=== PATIENT | female | born 1985 | race Caucasian/White ===

== ENCOUNTER 2022-12-04 13:24 | Emergency (ER) | payer OTHER ==
--- OUTSIDE RECORDS SUMMARY | 2022-12-04 13:27 | XMS REPORT | Continuity of Care Document ---
:1985 Author Organization [facility] t Address [address] [place] [address] Care Team Providers Name Role Phone PCP, PATIENT DOES NOT HAVE A Primary Care Physician Unavaila ble Elizabeth Mark Attending Clinician Unavailable BETSY FALCON Attending Clinician Unavailable Darryn GRISSOM, Clay Attending Clinician Unavailable Only, Pcp Test Attending Clinician Unavailable Sierra Cuevas MD Attending Clinician SIERRA CUEVAS Attending Clinician Unavailable Lab, Pcp Covid Attending Clinician Unavailable Marina Pisano RN Attending Clinician Unavailable RADIOLOGY Attending Clinician Unavailable Elizabeth Mark Admitting Clinician Unavailable TIAGO STEPHENS Admitting Clinician Unavailable Payers Payer Name Policy Type Policy Number Effective Date Expiration Date Radha SERRANO [facility] [id number] 2016 00:00:00 Problems Condition Condition Condition Status Onset Resolution Last Treating Co mments Source Name Details Category Date Date Treatment Clinician Date Personal Personal Disease Active Unive rs history of history of 05-30 it y of tobacco tobacco 00:00: [place] use, use, 00 Medical presenting presenting Br anch hazards to hazards to health health Breech Breech Disease Active 2006-10 Overview: Univer s presentati presentati 0-11 ICD10 it y of on on 00:00: Diagnosis [place] delivered delivered 00 Term 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 Second-deg Second-deg Disease Active Overview : Univers ree ree 5-11 ICD10 ity of perineal perineal 00:00: Diagnosis [place] as laceration laceration 00 Term Me dical during during 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 delivery delivery Utility Allergies, Adverse Reactions, Alerts Allergy Allergy Status Severity Reaction(s) Onset Inactive Treating Comm ents Source Name Type Date Date Clinician Sulfa DA Active [place] SWELLING 2021-10 [facility] (Sulfona 2-06 [place] mide 00:00: d Antibiot 00 Medical ics) Center Sulfa Propensi Active Swelling Facial Univer s (Sulfona ty to 5-11 swelling ity of mide adverse 00:00: [place] Antibiot reaction 00 Medica l ics) s Branch SULFA Drug Active Hives Univers (SULFONA Class 5-11 ity of MIDE 00:00: [place] ANTIBIOT 00 Medical ICS) Branch Social History Social Habit Start Date Stop Date Quantity Comments Source History of tobacco Cigarette Smoker [place] of use [facility] Sex Assigned At Universit y of [facility] Cigarettes smoked 2017-12-08 2017-12-08 Univers ity of current (pack per 00:00:00 00:00:00 ) - Reported Branch Cigarette 2017-12-08 2017-12-08 University of pack-years 00:00:00 00:00:00 [facility] Alcohol intake 2017-12-08 2017-12-08 University of 00:00:00 00:00:00 [facility] Smoking Status Start Date Stop Date Source Current every day smoker 2017-12-08 00:00:00 Uni versity of [facility] Medications Ordered Filled Start Stop Current Ordering Indication Dosage Frequency Signature Comments Components Source Medication Medication Date Date Medication? Clinician (SIG) Name Name TERBINAFINE Yes [id number] Take by Univers HCL 2-08 mouth. ity of (TERBINAFIN 18:03: [place] E ORAL) 40 Medical Branch amoxicillin Yes 500mg Take 500 U nivers 500 mg 2-08 mg by ity of capsule 18:03: mouth [address] [place] [id number] (three) Medical times Branch daily. TERBINAFINE Yes [id number] Take by Univers HCL 2-08 mouth. ity of (TERBINAFIN 18:03: [place] E ORAL) 40 Medical Branch amoxicillin Yes 500mg Take 500 U nivers 500 mg 2-08 mg by ity of capsule 18:03: mouth 3 [place] 40 (three) Medical times Branch daily. TERBINAFINE 2018-0 Yes [id number] Take by Univers HCL 2-08 mouth. ity of (TERBINAFIN 18:03: [place] E ORAL) 40 Medical Branch amoxicillin 2018-0 Yes 500mg Take 500 U nivers 500 mg 2-08 mg by ity of capsule 18:03: mouth 3 [place] 40 (three) Medical times Branch daily. TERBINAFINE 2018-0 Yes [id number] Take by Univers HCL 2-08 mouth. ity of (TERBINAFIN 18:03: [place] E ORAL) 40 Medical [place] amoxicillin 2018-0 Yes 500mg Take 500 U nivers 500 mg 2-08 mg by ity of capsule 18:03: mouth 3 [place] 40 (three) Medical times [place] daily. Immunizations Ordered Immunization Filled Immunization Date Status Commen ts Source Name Name Janak Briceno COVID-19 2020-11-30 Completed Vaccine Vaccine 00:00:00 Janak COVID-Yun Briceno COVID-19 2020-11-02 Completed Vaccine Vaccine 00:00:00 Procedures This patient has no known procedures. Encounters Start End Encounter Admission Attending Care Care Encounter Source Date/Time Date/Time Type Type Clinicians Facility Department ID 2022-10-06 2022-10-06 Outpatient ARIN Davidson RAGHAVENDRA [id number] [facility] 10:03:00 10:03:[address] 2022-10-06 2022-10-06 Outpatient ARIN Davidson RAGHAVENDRA [id number] [facility] 10:03:00 10:03:[address] 2020-11-30 2020-11-30 Outpatient Vilma FALCON [facility] [id number] Univers 13:20:00 13:20:[address] [facility] 2020-11-30 2020-11-30 Outpatient GCCOVIDV GCCOVIDV [id number] [facility] 00:00:00 00:00:00 V 2020-11-02 2020-11-02 Outpatient Vilma FALCON [facility] [id number] Univers 10:20:00 10:20:[address] [facility] 2020-11-02 2020-11-02 Outpatient Vilma FALCON [facility] [id number] [facility] 10:20:00 10:20:00 BETSY ity of [facility] 2020-11-02 2020-11-02 Outpatient GCCOVIDV GCCOVIDV [id number] [facility] 00:00:00 00:00:00 V 2020-04-22 2020-04-22 Telephone DarrynRODNEY [id number] 00:00:00 00:00:00 Clay WANGY [id number] [facility] 4.2.7.2.686 [id number] 2020-04-22 2020-04-22 Telephone CatesRODNEY 1.2.840.114 [id number] [facility] 00:00:00 00:00:00 Clay WANGY 350.1.13.10 it y [facility] 4.2.7.2.686 [place] as [phone] [address] 2020-04-21 2020-04-21 Laboratory Only, Pcp [facility] 1.2.840.114 [id number] 18:05:50 18:20:50 Only Test PRIMARY 350.1.13.10 CARE 4.2.7.2.686 PAVILLION [id number] [facility] 2020-04-21 2020-04-21 Laboratory Only, Pcp Test [facility] 1.2.840. 114 [id number] [facility] 18:05:50 18:20:50 Only Sierra Cuevas PRIMARY 350.1.13.10 ity of [facility] 4.2.7.2.686 [place] [id number] [address] 2020-04-21 2020-04-21 Outpatient Vilma CUEVAS [facility] [id number] Univers 18:15:00 18:15:00 SIERRA [place] of [facility] 2020-04-19 2020-04-19 Vice President Fixed Income Lab, Pcp [facility] 1.2.840.114 [id number] 16:09:36 16:19:36 Visit Covid PRIMARY 350.1.13.10 CARE 4.2.7.2.686 PAVILLION [id number] 2020-04-19 2020-04-19 Vice President Fixed Income Lab, Pcp Covid [facility] 1.2.840. 114 [id number] [facility] 16:09:36 16:19:36 Visit Sierra Cuevas [facility] 350.1.13.10 ity of [facility] 4.2.7.2.686 Osmani [facility] [phone] [address] 2020-04-19 2020-04-19 Outpatient R KILLIAN, [facility] [id number] [facility] 16:10:00 16:10:00 SIERRA [place] [facility] 2020-04-19 2020-04-19 Telephone Sabino STEVENS 1.2.840.114 [id number] 00:00:00 00:00:00 d, Marina NASCIMENTO [address].13.[address] [id number] [facility] 2020-04-19 2020-04-19 Telephone Sabino STEVENS 1.2.840.114 [id number] [facility] 00:00:00 00:00:00 d, Marina NASCIMENTO 350.1.13.10 ity [facility] 4.2.7.2.686 [place] zeynep [phone] [address] 2019-10-18 2019-10-18 Outpatient R RADIOLOGY [facility] [id number] [facility] 09:21:03 23:59:00 [facility] Results Test Description Test Time Test Comments Results Result Comments Source SURGICAL 2022-10-10 16:56:00 Test Item Value Reference Range Interpretation Comme tor SURGICAL RUN DATE: (test 10/10/22 SUSAN patiño - HORACE PAGE 1 RUN TIME: 3696 Specimen Inquiry RUN USER: INTERFACE code = PATIENT: BRITTANY SINGLETARY [id number] LOC: SAIMA U #: [id number] AGE/SX: 37/F ROOM: RE10/06/22[facility] DR: Elizabeth Mark MD : 83 BED: DIS: STATUS: [facility] TLOC: SPEC #: [id number]:PMC:[id number] RECD: 10/07/22608 STATUS: DARYL [facility] #: [id number] YARIEL: 10/06/221445 [facility] DR: Elizabeth Mark MD ENTERE SP TYPE: SURGICAL OTHR DR: ORDERED: [id number], ANATOMIC SPEC, SPECIMEN TRACK PROCEDURES: [id number] (10/10/22-1535) SPECIMEN TRACK (10/07/22) TISSUES: A. UTERUS - UTERUS, CERVIX, BILATERAL FA LLOPIAN TUBES FINAL DIAGNOSIS Uterus (139 g), fallopian tubes, hysterectomy and bilateral salpingectomie s: - Cervix, minimal chronic cervicitis with few Nabotian cyst- Endometrium, secretory pattern- Myometriu m, no morphological alteration- Serosa, no morphological alteration Fallopian tubes:- Wall, lume n and fimbriated end identified, bilaterally Comment: Negative for atypia/malignancy. Suggest c linical correlation. GROSS DESCRIPTION Uterus with bilateral fallopian tubes. Received is a uterus that weighs 139. It measurescornu to cornu 7.5 cm, posterior to anterior 5 cm, and fundus to cervix 10. 5 cm. Thecervix measures 4.2 x 3.5 cm with a cervical os transverse diameter of 1.5 cm. The uterusis biva lved revealing a pink smooth cervical canal of a 3.5 cm in length. The endometrialcavity is somewha t triangular in appearance measuring 3.5 x 2.5 cm. It is covered bythickened hemorrhagic endometrium of 0 .6 cm. The uterine wall has a maximum thickness of2.2 cm. Sectioning reveals no lesions. The serosal surf sina is smooth and glistening withadipose tissue along the anterior wall. There is attached right fall opian tube withfimbriated end measuring 4.5 cm in length with a diameter of 1 cm. The left fallopian tub ewith fimbriated end measures 6 cm in length and has a diameter of 1 cm. A1 posterior cervixA2 anterior cervixA3 posterior endomyometriumA4 additional sections of posterior endometriumA5 anterior endom yometrium A6 Additional sections of anterior endometriumA7 posterior reflectionA8 Right fallopian tube cut surface with entire bisected fimbriated end A9 Left fallopian tube cut surface with entire bisected fimbriated end CON TINUED ON NEXT PAGE RUN DATE: 10/10/22 [facility] - LAB PAGE 2 RUN TIME: 1656 Specimen Inquiry RUN USER: INTERFACE SPEC #: [id number]:[facility]:[id number] PATIENT: BRITTANY MARTIN #[id number] (Continued) GROSS DESCRIPTION (Continued ) Technical tissue processing and slide preparation performed at [employer],[id number], [place] [address] Unless gross only, the diagnosis is based upon microscopic examination.Immu nohistochemistry: This test was developed and its performance characteristicsdetermined by this laboratory. It has not been approved nor does it need approval by the USFDA. Appropriate positive and negative controls are reviewed and judged to be acceptable.This laboratory is certified unde r the Clinical Laboratory Improvement Amendments (CLIA-88)as qualified to perform high complexity clin [facility] laboratory testing. MICROSCOPIC DESCRIPTION Microscopic examination is performed on all specimens a nd the findings areincorporated into the final diagnosis. Please see diagnosis for findings. Signed SIGNATURE ON FILE Joseph Macias 10/10/22 1656 END OF REPORT BASIC METABOLIC [id number] 15:03:00 Test Item Value Reference Range Interpretation Comments SODIUM (test code 140 mmol/L 134-147 N = NA) POTASSIUM (test 3.9 mmol/L 3.4-5.0 N code = K) CHLORIDE (test 108 mmol/L 100-108 N code = CL) CARBON DIOXIDE 24 mmol/L 21-32 N (test code = CO2) ANION GAP (test 8.0 GAP calc 4.0-15.0 N code = GAP) GLUCOSE (test code 84 MG/DL 70-110 N = GLU) BLOOD UREA 6 MG/DL 7-18 L NITROGEN (test code = BUN) GLOMERULAR >=60 max >60 The Glomerular FILTRATION RATE estimate estGFR Filtratio n Rate is a (test code = GFR) calculated parameterbased on serum Creatinin e, patient age and sex. GFR valuesless than 60 mL/min/1.73 square meters are mya cative ofChronic Kidne y Disease. Values less than 15 mL/min/1.73squa re meters indicate Kidney failure. The calculation for GFR is based on the CK D-EPI (2020) calculat ion. This formulais race indifferent and is the recommended formula for GFR by the National Kidney Foundation for Adults.The GFR will not calculate i f the sex is unknown or if thepatient's ag e is <18 years. CREATININE (test 0.6 MG/DL 0.6-1.0 N code = CREAT) CALCIUM (test code 9.0 MG/DL 8.5-10.1 N = CA) COVID 19 INHOUSE [id number] 11:07:00 Test Item Value Reference Range Interpretation Comments COVID 19 INHOUSE AG NEGATIVE Negative Per gabriella facturer, (test code = negative result s should [id number]) be treated aspr esumptive and, if inconsi stent with clinical signs andsymptoms or necessary for patient man agement, should betested with an alternative mol ecular assay. Negative resultsdo not preclude SA RS-CoV-2 infection and s hould not be usedas the s ole basis for patient man agement decisions. Nega tive results should be considered in t he context of apatient's r ecent exposures, hist ory, presence of cli nicalsigns and symptoms co nsistent with COVID-19. PROTHROMBIN [id number] 11:07:00 Test Item Value Reference Range Interpretation Comments PT PATIENT (test 11.8 SECONDS 9.3-12.9 N code = PTP) INTERNATIONAL NORMAL 1.09 INR Unit 0.8-1.2 N TARGE T INR BY RATIO (test code = INDICATIO N Indication INR) INR1. Prophylax is of venous thrombos is 2.0 - 3.0 (orthoped ic surgery), Proph ylaxis of venous throm bosis (other than hig h-risk surgery), Treat ment of Deep Vein Thrombosis/Pulm onary Embolism, Preve ntion of systemic emb olism - Tissue heart va lves, Acute Myocardia l Infarction (to prevent systemic emboli sm), Valvular heart disease, Acute Myocardial Infa rction (to prevent sys temic embolism), Valv ular heart disease, Atrial Fibrillation, Bileaflet mecha nical valve in aortic position.2. Mec hanical prosthetic valv es (high risk), 2. 5 - 3.5 Presence of Lup us Anticoagulant o r Antiphospholipi d Antibodies, Pre vention of systemic emb olism - Acute Myocardia l Infarction (to prevent recurrent infar ct). THROMBOPLASTIN TIME [id number] 11:07:00 Test Item Value Reference Range Interpretation Comments THROMBOPLASTIN TIME PARTIAL 39.0 SECONDS 26-35 H (test code = PTT) CBC W/AUTO [id number] 11:04:00 Test Item Value Reference Range Interpretation Comments WHITE BLOOD CELL (test code = 8.0 K/mm3 3.5-11.0 N WBC) RED BLOOD CELL (test code = 4.35 M/mm3 4.70-6.10 L RBC) HEMOGLOBIN (test code = HGB) 12.7 G/DL 10.4-14.9 N HEMATOCRIT (test code = HCT) 37.9 % 31.5-44.1 N MEAN CELL VOLUME (test code = 87.1 Fl 84.5-98.6 N MCV) MEAN CELL HGB (test code = MCH) 29.2 pg 27.0-34.2 N MEAN CELL HGB CONCETRATION 33.5 G/DL 31.5-34.0 N (test code = MCHC) RED CELL DISTRIBUTION WIDTH 12.7 SD 11.5-14.5 N (test code = RDW) PLATELET COUNT (test code = 371 K/mm3 150-450 N PLT) MEAN PLATELET VOLUME (test code 9.20 fL 7.0-10.5 N = MPV) NEUTROPHIL % (test code = NT%) 57.0 % 40-76 N IMMATURE GRANULOCYTE % (test 0.4 % 0.0-5.0 N code = IG%) LYMPHOCYTE % (test code = LY%) 33.1 % 20.5-51.1 N MONOCYTE % (test code = MO%) 7.5 % 1.7-9.3 N EOSINOPHIL % (test code = EO%) 1.4 % 0.0-6.0 N BASOPHIL % (test code = BA%) 0.6 % 0.0-2.0 N NUCLEATED RBC % (test code = 0.0 /100WBC% 0.0-1.0 N NRBC%) NEUTROPHIL # (test code = NT#) 4.6 K/mm3 1.8-7.6 N IMMATURE GRANULOCYTE # (test 0.03 x10 3/uL 0.00-0.03 N code = IG#) LYMPHOCYTE # (test code = LY#) 2.7 K/mm3 0.6-3.2 N MONOCYTE # (test code = MO#) 0.6 K/mm3 0.3-1.1 N EOSINOPHIL # (test code = EO#) 0.1 K/mm3 0.0-0.4 N BASOPHIL # (test code = BA#) 0.1 K/mm3 0.0-0.1 N NUCLEATED RBC # (test code = 0.0 K/mm3 0.0-0.1 N NRBC#) MANUAL DIFF REQUIRED (test code NO DIFF/SCN CRITERIA = MDIFF) URINALYSIS [id number] 10:40:00 Test Item Value Reference Range Interpretation Comments UA GLUCOSE DIPSTICK (test NEGATIVE mg/dL NEG code = DGLUU) UA BILIRUBIN DIPSTICK (test NEGATIVE mg/dL NEG code = BILU) UA KETONE DIPSTICK (test NEGATIVE mg/dL NEG code = KETU) UA SPECIFIC GRAVITY (test <=1.005 SG 1.005-1.030 code = SGU) UA BLOOD DIPSTICK (test NEGATIVE mg/DL NEG code = LUIGI) UA PH DIPSTICK (test code = 7.0 pH UNITS 5.0-7.0 DAI) UA PROTEIN DIPSTICK (test NEGATIVE mg/dL NEG code = PROU) UA UROBILINIOGEN DIPSTICK 0.2 mg/dL <2.0 (test code = URO) UA NITRITE DIPSTICK (test NEGATIVE SCREEN NEG code = COY) UA LEUKOCYTE ESTERASE NEGATIVE Leuk/mcL NEGATIVE DIPSTICK (test code = LEUU) Urine Specimen Type: Clean CatchUR HCG [id number] 10:38:00 Test Item Value Reference Range Interpretation Comments UR HCG QUAL (test code = HCGQLU) NEGATIVE NEGATIVE
[2022-12-04] MEDS ORDERED: NA CHLORIDE 0.9% 1,000 ML ONE (14:17)
[2022-12-04] MEDS ORDERED: KETOROLAC 30 MG/ML INJ ONE (14:17)
[2022-12-04] MEDS ORDERED: FAMOTIDINE 20 MG/2 ML VIAL IV ONE (14:17)
[2022-12-04 15:03] LABS: Urine Blood Negative (Negative); Urine Glucose Negative (Negative); Urine Protein Negative (Negative); Urine Specific Gravity 1.015 (1.005-1.030); Urine pH 5.5 (5.0-7.0)
[2022-12-04 15:08] LABS: Urine Bacteria None Seen /HPF (<20); Urine Mucus Slight /HPF (None Seen); Urine RBC <5 /HPF (None Seen)
[2022-12-04 15:08] LABS: Urine Specific Gravity/Preg 1.015 (1.005-1.030)
[2022-12-04 15:43] LABS: Absolute Lymphocytes (CBC) 2.6 K/uL (0.7-4.9); Hematocrit 37.3 % (36.0-45.0); Lymphocytes % 30.2 % (15.3-44.8); MCV 86.2 fL (80-100); MPV 6.9 fL (7.6-11.3); RBC Red Blood Cell Count 4.33 M/uL (3.86-4.86)
--- NOTE | 2022-12-04 16:14 | RAD REPORT ---
EXAM DESCRIPTION: RAD - Chest Single View - 12/04/2022 3:59 pm CLINICAL HISTORY: MALAISE COMPARISON: None TECHNIQUE: AP portable chest image was obtained 12/04/2022 3:59 pm . FINDINGS: Lungs are clear. Heart and vasculature are normal. No measurable pleural effusion and no p neumothorax. No acute bony abnormality seen. No acute aortic findings suspected. IMPRESSION: No acute cardiopulmonary process.
--- NOTE | 2022-12-04 16:26 | RAD REPORT ---
EXAM DESCRIPTION: CT - Abdomen Pelvis W Contrast - 12/04/2022 4:06 pm CLINICAL HISTORY: Epigastric pain COMPARISON: No comparisons TECHNIQUE: Biphasic, helical CT imaging of the abdomen and pelvis was performed following 100 ml non -ionic IV contrast. Oral contrast: No. All CT scans are performed using dose optimization technique as appropriate and may include automated exposure control or mA/KV adjustment according to patient size. FINDINGS: No suspicious findings in the lung bases. The liver, spleen, and pancreas show no suspicious focal findings. Liver attenuation is borderline to mildly fatty infiltrated. Cholecystectomy clips are present with no abnormal biliary tree dilatation . Symmetric renal function is seen with no hydronephrosis or suspicious renal mass. No pyelonephritis o r acute parenchymal process. Nonobstructing 6 mm calyx calcification present mid right kidney. No adr enal abnormalities. No urinary bladder abnormality. Uterus is absent. No ovarian abnormality. No dilated bowel loops or bowel wall thickening. No free air, free fluid or inflammatory stranding. Small 2.5 cm fat only periumbilical hernia with no congestion or edema of the herniated fat. No othe r hernia is seen. No mass or bulky lymphadenopathy. No acute bone finding. No acute vascular process. IMPRESSION: Contrast enhanced CT abdomen and pelvis showing no acute or emergent finding.
[2022-12-04 17:22] LABS: Albumin 3.3 g/dL (3.4-5.0); Bilirubin Total 0.4 mg/dL (0.2-1.0); Potassium 3.6 mmol/L (3.5-5.1); Protein, Total 6.9 g/dL (6.4-8.2)
--- NOTE | 2022-12-04 17:37 | ER ---
Nurse's Notes [facility] Name: Mainor Vila Age: 37 yrs Sex: Female : 1985 Arrival Date: 12/04/2022 Time: 13:26 Bed 12 Private MD: Diagnosis: Epigastric pain Presentation: 12/04 13:41 Chief complaint: Patient states: Epigastric pain for 5 days. Coronavirus screen: ll1 Vaccine status: Patient reports receiving the 2nd dose of the covid vaccine. Client denies travel out of the [place] in the last 14 days. At this time, the client does not indicate any symptoms associated with coronavirus-19. Ebola Screen: Patient denies travel to an Ebola-affected area in the 21 days before illness onset. Initial Sepsis Screen: Does the patient meet any 2 criteria? No. Patient's initial sepsis screen is negative. Does the patient have a suspected source of infection? Yes: Acute abdominal pain. Risk Assessment: Do you want to hurt yourself or someone else? Patient reports no desire to harm self or others. Onset of symptoms was November 30, 2022. 13:41 Method Of Arrival: Ambulatory 1 13:41 Acuity: IVAN 3 ll1 Triage Assessment: 16:05 General: Appears in no apparent distress. uncomfortable, Behavior is calm, cooperative, kr3 appropriate for age. Pain: Complains of pain in abdomen. 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 - Social history:: Smoking status: Patient denies any tobacco usage or history of. Screenin:15 [facility] ED Fall Risk Assessment (Adult) History of falling in the last 3 months, kr3 including since admission No falls in past 3 months (0 pts) Confusion or Disorientation No (0 pts) Intoxicated or Sedated No (0 pts) Impaired Gait No (0 pts) Mobility Assist Device Used No (0 pt) Altered Elimination No (0 pt) Score/Fall Risk Level 0 - 2 = Low Risk Oriented to surroundings, Maintained a safe environment, Educated pt \T\ family on fall prevention, incl call for assistance when getting out of bed, Hourly rounding (assess needs \T\ fall precautionary measures) done. Tuberculosis screening: No symptoms or risk factors identified. 18:45 Abuse screen: Denies threats or abuse. Nutritional screening: No deficits noted. kr3 Assessment: 14:30 Reassessment: Patient appears in no apparent distress at this time. Patient and/or kr3 family updated on plan of care and expected duration. Pain level reassessed. Patient is alert, oriented x 3, equal unlabored respirations, skin warm/dry/pink. 15:30 Reassessment: Patient appears in no apparent distress at this time. Patient and/or kr3 family updated on plan of care and expected duration. Pain level reassessed. Patient is alert, oriented x 3, equal unlabored respirations, skin warm/dry/pink. 16:30 Reassessment: Patient appears in no apparent distress at this time. Patient and/or kr3 family updated on plan of care and expected duration. Pain level reassessed. Patient is alert, oriented x 3, equal unlabored respirations, skin warm/dry/pink. 17:30 Reassessment: Patient appears in no apparent distress at this time. Patient and/or kr3 family updated on plan of care and expected duration. Pain level reassessed. Patient is alert, oriented x 3, equal unlabored respirations, skin warm/dry/pink. 18:47 GI: kr3 Vital Signs: 13:41 BP 117 / 86; Pulse 88; Resp 17; Temp 98.3; Pulse Ox 100% ; Weight 90.72 kg; Height 5 ll1 ft. 4 in. (162.56 cm); Pain 5/10; 14:30 BP 104 / 71; Pulse 74; Resp 17; Pulse Ox 100% on R/A; kr3 16:30 BP 108 / 82; Pulse 72; Resp 17; Pulse Ox 99% on R/A; kr3 17:34 BP 97 / 63; Pulse 75; Resp 17; Pulse Ox 99% on R/A; kr3 13:41 Body Mass Index 34.33 (90.72 kg, 162.56 cm) ll1 ED Course: 13:26 Patient arrived in ED. as 13:28 [facility] 13:28 Jv Urias MD is Attending Physician. jh7 13:42 Triage completed. ll1 13:43 Arm band placed on. ll1 13:50 Bed in low position. Call light in reach. Side rails up X 1. kr3 14:10 Mary Jane Garibay, RN is Primary Nurse. kr3 14:58 Urine Microscopic Only Sent. zm 15:10 Missed attempt(s): 22 gauge in right forearm. kr3 15:30 Inserted saline lock: 22 gauge in right forearm, using aseptic technique. Blood kr3 collected. 16:01 XRAY Chest (1 view) In Process Unspecified. EDMS 16:08 CT Abd/Pelvis - IV Contrast Only In Process Unspecified. EDMS 17:03 PHCP role handed off by Erna Ortiz FNP [facility] 17:03 Dean Grant PA is PHCP. jmm 17:30 No provider procedures requiring assistance completed. kr3 17:36 Gerard Hamilton MD is Referral Physician. jmm 17:45 IV discontinued, intact, bleeding controlled, No redness/swelling at site. Pressure kr3 dressing applied. Administered Medications: 15:25 Drug: NS 0.9% 1000 ml Route: IV; Rate: 1 bolus; Site: right forearm; kr3 18:48 Follow up: Response: No adverse reaction; IV Status: Completed infusion; IV Intake: kr3 1000ml 15:30 Drug: Pepcid (famotidine) 20 mg Route: IVP; Site: right forearm; kr3 18:48 Follow up: Response: No adverse reaction kr3 15:40 Drug: TORadol - (ketorolac) 15 mg Route: IVP; Site: right forearm; kr3 18:48 Follow up: Response: No adverse reaction kr3 Medication: 18:47 VIS not applicable for this client. kr3 Intake: 18:48 IV: 1000ml; Total: 1000ml. kr3 Outcome: 17:36 Discharge ordered by . jmm 17:40 Discharge instructions given to patient, Instructed on discharge instructions, follow kr3 up and referral plans. medication usage, Demonstrated understanding of instructions, follow-up care, medications, Prescriptions given X 3. 17:52 Patient left the ED. kr3 18:46 Discharged to home ambulatory. kr3 18:46 Condition: stable Signatures: Dispatcher [employer] EDMS Dean Grant PA PA jmm Martinez, Amelia as Lewis, Lynsay, RN RN ll1 Tanna Serra Jennifer, BOOK ILLUSTRATOR BOOK ILLUSTRATOR jh7 Mary Jane Garibay RN RN kr3 Corrections: (The following items were deleted from the chart) 17:37 17:36 Missed attempt(s): 22 gauge in right forearm. kr3 kr3
--- NOTE | 2022-12-04 17:37 | EDPHYS ---
Physician Documentation [facility] Name: Mainor Vila Age: 37 yrs Sex: Female : 1985 Arrival Date: 12/04/2022 Time: 13:26 Bed 12 Private MD: ED Physician Jv Urias HPI: 12/04 13:35 This 37 yrs old Female presents to ER via Ambulatory with complaints of Abdominal Pain. jh7 13:35 The patient presents with abdominal pain in the epigastric area. Onset: The jh7 symptoms/episode began/occurred 5 day(s) ago. The symptoms do not radiate. Associated signs and symptoms: Pertinent negatives: nausea, vomiting, and diarrhea, dysuria, fever, headache, shortness of breath. 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 Reports that eating worsens the pain.. 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 - Social history:: Smoking status: Patient denies any tobacco usage or history of. ROS: 13:35 Constitutional: Negative for fever, chills, and weight loss, Neck: Negative for injury, jh7 pain, and swelling, Cardiovascular: Negative for chest pain, palpitations, and edema, Respiratory: Negative for shortness of breath, cough, wheezing, and pleuritic chest pain, Back: Negative for injury and pain, MS/Extremity: Negative for injury and deformity, Skin: Negative for injury, rash, and discoloration, Neuro: Negative for headache, weakness, numbness, tingling, and seizure. 13:35 Abdomen/GI: Positive for abdominal pain, Negative for nausea, vomiting, and diarrhea, constipation, black/tarry stool, rectal bleeding. 13:35 All other systems are negative. Exam: 13:35 Constitutional: This is a well developed, well nourished patient who is awake, alert, jh7 and in no acute distress. Head/Face: Normocephalic, atraumatic. Neck: Trachea midline, no thyromegaly or masses palpated, and no cervical lymphadenopathy. Supple, full range of motion without nuchal rigidity, or vertebral point tenderness. No Meningismus. Cardiovascular: Regular rate and rhythm with a normal S1 and S2. No gallops, murmurs, or rubs. Normal PMI, no JVD. No pulse deficits. Respiratory: Lungs have equal breath sounds bilaterally, clear to auscultation and percussion. No rales, rhonchi or wheezes noted. No increased work of breathing, no retractions or nasal flaring. Back: No spinal tenderness. No costovertebral tenderness. Full range of motion. Skin: Warm, dry with normal turgor. Normal color with no rashes, no lesions, and no evidence of cellulitis. MS/ Extremity: Pulses equal, no cyanosis. Neurovascular intact. Full, normal range of motion. Neuro: Awake and alert, GCS 15, oriented to person, place, time, and situation. Motor strength 5/5 in all extremities. Sensory grossly intact. Normal gait. 13:35 Abdomen/GI: Inspection: abdomen appears normal, Bowel sounds: normal, Palpation: soft, mild abdominal tenderness, in the epigastric area. Vital Signs: 13:41 BP 117 / 86; Pulse 88; Resp 17; Temp 98.3; Pulse Ox 100% ; Weight 90.72 kg; Height 5 ll1 ft. 4 in. (162.56 cm); Pain 5/10; 14:30 BP 104 / 71; Pulse 74; Resp 17; Pulse Ox 100% on R/A; kr3 16:30 BP 108 / 82; Pulse 72; Resp 17; Pulse Ox 99% on R/A; kr3 17:34 BP 97 / 63; Pulse 75; Resp 17; Pulse Ox 99% on R/A; kr3 13:41 Body Mass Index 34.33 (90.72 kg, 162.56 cm) ll1 MDM: 13:28 [facility] medically screened[facility] 12/04 13:36 Order name: CBC with Diff; Complete Time: 15:54 [facility] 12/04 13:36 Order name: CMP; Complete Time: 17:36 [facility] 12/04 13:36 Order name: Lipase; Complete Time: 17:36 [facility] 12/04 13:36 Order name: Urine Microscopic Only; Complete Time: 15:11 [facility] 12/04 15:03 Order name: Urine Dipstick-Ancillary; Complete Time: 15:11 [facility] 12/04 15:04 Order name: Urine --Ancillary (enter results); Complete Time: 15:11 [facility] 12/04 13:36 Order name: CT Abd/Pelvis - IV Contrast Only; Complete Time: 16:27 [facility] 12/04 13:36 Order name: IV Saline Lock; Complete Time: 15:40 [facility] 12/04 13:36 Order name: Labs collected and sent; Complete Time: 15:40 [facility] 12/04 13:36 Order name: Urine Dipstick-Ancillary (obtain specimen); Complete Time: 14:58 [facility] 12/04 13:36 Order name: XRAY Chest (1 view); Complete Time: 16:19 [facility] 12/04 13:36 Order name: Urine Test (obtain specimen); Complete Time: 14:58 [facility] 12/04 13:36 Order name: EKG - Nurse/Tech; Complete Time: 14:55 [facility] Administered Medications: 15:25 Drug: NS 0.9% 1000 ml Route: IV; Rate: 1 bolus; Site: right forearm; kr3 18:48 Follow up: Response: No adverse reaction; IV Status: Completed infusion; IV Intake: kr3 1000ml 15:30 Drug: Pepcid (famotidine) 20 mg Route: IVP; Site: right forearm; kr3 18:48 Follow up: Response: No adverse reaction kr3 15:40 Drug: TORadol - (ketorolac) 15 mg Route: IVP; Site: right forearm; kr3 18:48 Follow up: Response: No adverse reaction kr3 Disposition: 19:18 Co-signature as Attending Physician, Jv Urias MD I agree with the assessment and kdr plan of care. Disposition Summary: 12/04/22 17:36 Discharge Ordered Location: Home jmm Condition: Stable jm Diagnosis - Epigastric pain m Followup: jmm - With: Gerard Hamilton MD - When: 2 - 3 days - Reason: Recheck today's complaints, Continuance of care, Re-evaluation by your physician Discharge Instructions: - Discharge Summary Sheet jmm - Abdominal Pain, Adult jmm Forms: - Medication Reconciliation Form jm - Thank You Letter jmm - Antibiotic Education jmm - Prescription Opioid Use [facility] Prescriptions: - Carafate 1 gram Oral Tablet - take 1 tablet by ORAL route 4 times per day take on an empty stomach, beginning jmm on waking and last dose at bedtime; 100 tablet; Refills: 0, Product Selection Permitted - Pepcid 20 mg Oral Tablet - take 1 tablet by ORAL route every 12 hours for 10 days; 20 tablet; Refills: 0, [facility] Product Selection Permitted - dicyclomine 20 mg Oral Tablet - take 1 tablet by ORAL route 4 times per day As needed; 30 tablet; Refills: 0, [facility] Product Selection Permitted Signatures: Dispatcher [employer] [facility] Jv Urias MD MD kdr Mickail, Joel, PA PA Gwendolyn Wooten, RN RN ll1 Erna Ortiz FNP FNP jh7 Mary Jane Garibay, RN RN kr3
[2022-12-04 18:10] VITALS: TEMP 98.3
[2022-12-04 18:21] VITALS: O2SAT 99
[2022-12-04 18:27] VITALS: BP 97/63
== END 2022-12-04 17:52 | disposition home or self-care (01) ==
LOC: ER 13:24
DX: R10.13 Epigastric pain (principal); Z88.2 Allergy status to sulfonamides
CPT/HCPCS: 96361; 93005; 85025; 36415; 81025; 82565; 83690; 80053; 74177; 71045; 96375; 96374; 99284; Q9967; J7030; 81003; 81015

== ENCOUNTER 2023-07-16 21:50 | Emergency (ER) | payer OTHER ==
--- OUTSIDE RECORDS SUMMARY | 2023-07-16 21:53 | XMS REPORT | Continuity of Care Document ---
:1985 Author Organization [facility] t Address [address] [place] [address] [place] [address] Care Team Providers Name Role Phone PCP, PATIENT DOES NOT HAVE A Primary Care Physician Unavaila ble Elizabeth Mark Attending Clinician Unavailable BETSY FALCON Attending Clinician Unavailable Darryn GRISSOM, Clay Attending Clinician Unavailable Only, Pcp Test Attending Clinician Unavailable Faith MCCLAIN, Sierra Berger Attending Clinician SIERRA CUEVAS Attending Clinician Unavailable Lab, Pcp Covid Attending Clinician Unavailable Marina Pisano RN Attending Clinician Unavailable RADIOLOGY Attending Clinician Unavailable Elizabeth Mark Admitting Clinician Unavailable TIAGO STEPHENS Admitting Clinician Unavailable Payers Payer Name Policy Type Policy Number Effective Date Expiration Date Radha SERRANO [facility] [id number] 2016 00:00:00 Problems Condition Condition Condition Status [...] [place] delivered delivered 00 Term Medi anand [facility] Branch Utility Second-deg Second-deg Disease Active Overview : Univers ree ree 5-11 ICD10 ity of perineal perineal 00:00: Diagnosis [place] as laceration laceration 00 Term Me dical during during [facility]arnish [facility] Branch delivery delivery Utility Allergies, Adverse Reactions, [...] Comments Source History of tobacco Cigarette Smoker [place] of use [facility] Sex Assigned At Universit y of [facility] Cigarettes smoked 2017-12-08 2017-12-08 Univers ity of current (pack per 00:00:00 00:00:00 ) - Reported Branch Cigarette 2017-12-08 2017-12-08 University of pack-years 00:00:00 00:00:00 [facility] Alcohol intake 2017-12-08 2017-12-08 University of 00:00:00 00:00:00 [facility] Smoking Status Start Date Stop Date Source Current every day smoker 2017-12-08 00:00:00 Uni versity of [facility] Medications Ordered Filled Start Stop Current Ordering Indication Dosage Frequency Signature Comments Components Source Medication Medication Date Date Medication? Clinician (SIG) Name Name TERBINAFINE Yes [id number] Take by Univers HCL 2-08 mouth. ity of (TERBINAFIN 18:03: [place] E ORAL) 40 Medical Branch amoxicillin Yes 500mg Take 500 U nivers 500 mg 2-08 mg by ity of capsule 18:03: mouth [address] [place] [address] (three) Medical times Branch daily. TERBINAFINE Yes [id number] Take by Univers HCL 2-08 mouth. ity of (TERBINAFIN 18:03: [place] E ORAL) 40 Medical Branch amoxicillin Yes 500mg Take 500 U nivers 500 mg 2-08 mg by ity of capsule 18:03: mouth 3 [place] 40 (three) Medical times Branch daily. TERBINAFINE 2018-0 Yes [id number] Take by Univers HCL 2-08 mouth. ity of (TERBINAFIN 18:03: [place] E ORAL) 40 Medical Branch amoxicillin 2018-0 Yes 500mg Take 500 U nivers 500 mg 2-08 mg by ity of capsule 18:03: mouth 3 [place] 40 (three) Medical times Branch daily. TERBINAFINE 2018-0 Yes [id number] Take by Univers HCL 2-08 mouth. ity of (TERBINAFIN 18:03: [place] E ORAL) 40 Medical [place] amoxicillin 2018-0 Yes 500mg Take 500 U nivers 500 mg 2-08 mg by ity of capsule 18:03: mouth 3 [place] 40 (three) Medical times [place] daily. Immunizations Ordered Immunization Filled Immunization Date Status Commen ts Source Name Name Janak Briceno COVID-19 2020-11-30 Completed Vaccine Vaccine 00:00:00 Janak COVID-Yun Brcieno COVID-19 2020-11-02 Completed Vaccine Vaccine 00:00:00 Procedures This patient has no known procedures. Encounters Start End Encounter Admission Attending Care Care Encounter Source Date/Time Date/Time Type Type Clinicians Facility Department ID 2022-10-06 2022-10-06 Outpatient ARIN Davidson RAGHAVENDRA [id number] [facility] 10:03:00 10:03:[address] 2022-10-06 2022-10-06 Outpatient ARIN Davidson RAGHAVENDRA [id number] [facility] 10:03:00 10:03:[address] 2020-11-30 2020-11-30 Outpatient Vilma FALCON [facility] [id number] Univers 13:20:00 13:20:00 BETSY [facility] 2020-11-30 2020-11-30 Outpatient GCCOVIDV GCCOVIDV [id number] [facility] 00:00:00 00:00:00 V 2020-11-02 2020-11-02 Outpatient Vilma FALCON [facility] [id number] Univers 10:20:00 10:20:00 BETSY [facility] 2020-11-02 2020-11-02 Outpatient Vilma FALCON [facility] [id number] [facility] 10:20:00 10:20:00 BETSY ity [facility] 2020-11-02 2020-11-02 Outpatient GCCOVIDV GCCOVIDV [id number] [facility] 00:00:00 00:00:00 V 2020-04-22 2020-04-22 Telephone RODNEY Cates 1.2.840.114 [id number] [facility] 00:00:00 00:00:00 Clay AZAM 350.1.13.10 it y [facility] 4.2.7.2.686 [place] as [id number] [address] 2020-04-22 2020-04-22 Telephone RODNEY Cates 1.2.840.114 [id number] 00:00:00 00:00:00 Clay NASCIMENTO 350.1.13.10 [facility] 4.2.7.2.686 [id number] 2020-04-21 2020-04-21 Laboratory Only, Pcp Test [facility] 1.2.840. 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 114 [id number] Univers 16:09:36 16:19:36 Visit Sierra Cuevas PRIMARY 350.1.13.10 ity of C[place] 4.2.7.2.686 [place] [id number] [address] 2020-04-19 2020-04-19 Architectural Engineering Teacher Lab, Pcp [facility] 1.2.840.114 [id number] 16:09:36 16:19:36 Visit Covid PRIMARY 350.1.13.10 [facility].2.7.2.686 ЕЛЕНА [id number] 2020-04-19 2020-04-19 Outpatient R FAITH, [facility] [id number] Univers 16:10:00 16:10:00 SIERRA [facility] 2020-04-19 2020-04-19 Telephone Sabino STEVENS 1.2.840.114 [id number] 00:00:00 00:00:00 d, Marina NASCIMENTO 350.1.13.[address]686 [id number] 2020-04-19 2020-04-19 Telephone Sabino STEVENS 1.2.840.114 [id number] [facility] 00:00:00 00:00:00 d, Marina NASCIMENTO 350.1.13.[address]7.2.686 [place] as [id number] [address] 2019-10-18 2019-10-18 Outpatient R RADIOLOGY [facility] [id number] Univers 09:21:03 23:59:00 [facility] Results Test Description Test Time Test Comments Results Result Comments Source SURGICAL 2022-10-10 16:56:00 Test Item Value Reference Range Interpretation Comme nts SURGICAL RUN DATE: (test 10/10/22 SUSAN VU PAGE 1 RUN TIME: 1836 Specimen Inquiry RUN USER: INTERFACE code = PATIENT: BRITTANY SINGLETARY [id number] LOC: SAIMA U #: [id number] AGE/SX: 37/F ROOM: RE10/06/22[facility] DR: Elizabeth Mark MD : 83 BED: DIS: STATUS: [facility] TLOC: SPEC #: [id number] RECD: 10/07/22608 STATUS: [facility] #: [id number] YARIEL: 10/06/221445 [facility] DR: Elizabeth Mark MD ENTERE SP TYPE: SURGICAL OTHR DR: ORDERED: [id number], ANATOMIC SPEC, SPECIMEN TRACK PROCEDURES: [id number] (10/10/22-1535) SPECIMEN TRACK (10/07/22609) TISSUES: A. UTERUS - UTERUS, CERVIX, BILATERAL [...] TINUED ON NEXT PAGE RUN DATE: 10/10/22 [facility] 2 RUN TIME: 1656 Specimen Inquiry RUN USER: INTERFACE SPEC #: [id number]:[id number] PATIENT: BRITTANY MARTIN #[id number] (Continued) GROSS DESCRIPTION (Continued ) Technical tissue processing and slide preparation performed at [employer],[id number], [place] [address] Unless gross only, the diagnosis is based [...] (CLIA-88)as qualified to perform high complexity clin [facility] laboratory testing. MICROSCOPIC DESCRIPTION Microscopic examination is performed on all specimens a nd the findings areincorporated into the final diagnosis. Please see diagnosis for findings. Signed SIGNATURE ON FILE Joseph Macias 10/10/22 5142 END OF REPORT BASIC METABOLIC [id number] 15:03:00 Test Item Value Reference Range Interpretation [...] 8.5-10.1 N = [place]) COVID 19 INHOUSE [id number] 11:07:00 Test Item Value Reference Range Interpretation Comments COVID 19 INHOUSE AG NEGATIVE Negative Per gabriella facturer, (test code = negative result s should [id number]) be treated aspr esumptive and, if inconsi [...] and symptoms co nsistent with COVID-19. PROTHROMBIN [id number] 11:07:00 Test Item Value Reference Range Interpretation [...] (to prevent recurrent infar ct). THROMBOPLASTIN TIME [id number] 11:07:00 Test Item Value Reference Range Interpretation Comments THROMBOPLASTIN TIME PARTIAL 39.0 SECONDS 26-35 H (test code = PTT) CBC W/AUTO [id number] 11:04:00 Test Item Value Reference Range Interpretation [...] code NO DIFF/SCN CRITERIA = MDIFF) URINALYSIS [id number] 10:40:00 Test Item Value Reference Range Interpretation [...] LEUU) Urine Specimen Type: Clean CatchUR HCG [id number] 10:38:00 Test Item Value Reference Range Interpretation Comments UR HCG QUAL (test code = HCGQLU) NEGATIVE NEGATIVE Notes Date/Time Note Provider Source 2022-10-13 16:57:00-00:00 [id number] [facility] [address] [place] [address] PATIENT NAME: BRITTANY MARTIN ADMIT DATE: 10/06/22 ACCOUNT NO: [id number] ROOM NO: AGE: 37 REPORT TYPE: OPERATIVE REPORT SEX: F ADMITTING PHYSICIAN: ATTENDING PHYSICIAN: Elizabeth Mark MD OPERATION DATE: 10/06/2022 PREOPERATIVE DIAGNOSIS: Menorrhagia (AUB-O/A). POSTOPERATIVE DIAGNOSES: Menorrhagia (AUB-O/A) a nd stage I uterovaginal prolapse, rectocele. PROCEDURE PERFORMED: 1. Robotic total laparoscopic hysterectomy. 2. Bilateral salpingectomy. 3. Uterosacral ligament suspension. 4. Colpopexy. 5. Cystoscopy. 6. Bilateral ovariopexy. SURGEON: Elizabeth Mark MD ASPHALT MIXER: Tavo Avelar. ANESTHESIA: General. FINDINGS: Mild bladder scar, POP-Q -2, -2, -2, 5 , 10, 8, -1, 0, -3. The patient with the posterior uterosa cral ligament suspension done, ovaries appeared to be pendulous. The patient wi th history of right ovarian cystectomy in 2013. Therefore, bilateral ovariopexy was per formed to prevent . Cystoscopy showed patent ureters. COMPLICATIONS: None. ESTIMATED BLOOD LOSS: Minimal. SPECIMENS: Uterus and tubes. PATIENT'S CONDITION: Stable. FLUIDS: 1500 LR. URINE OUTPUT: 150 mL. APPROACH: Robotic-assisted laparoscopic procedur e. COUNTS: Correct. PATIENT NAME: BRITTANY MARTIN 763 INDICATIONS FOR OPERATION: The patient is a 37-y ear-old female evaluated for bleeding and treated in the past. ovarian cyst, doing well at this time. She was evaluated for atypia or malignancy, and the biopsy was negative. She was consented and brought to the hospital. After understanding the benefits and risks of all the alternatives for treatm ent of bleeding, she wanted to proceed with definitive treatment with hysterectomy. DESCRIPTION OF PROCEDURE: After consent was done , she was brought back to the OR, 2 grams of Ancef were given. SCDs were place d. She was placed in supine fashion on the operating table. General anesthes ia was given. She was then placed in dorsal lithotomy position jhony almanzar. Abdomen prepped with ChloraPrep. Vulva, vagina, and perineum prepped with Betadine. Speculum was placed to expose the cervix. Anterior lip was grasped with 2 Allis clamps and a large VCare introducer was p laced into position and fixed here. Castorena placed to drain the bladder and attached to retrograde tasha ling. After the bottom was draped, a 1 cm supraumbilic al incision was made with a scalpel 10 cm above th e pubic symphysis. Direct laparoscopy was performed to open the fascia with ____ _, tagged with 0 Vicryl sutures. Peritoneum entered sharply. S retractors were placed for placement of robotic Feliciano. Once this was fixed in place, the site of entry was checke d and was unremarkable after adequate insufflation. Then, the patient was janes sara in Replaced by [facility]. The robot was brought in and docked from the left side. Two 8 ports were placed in the left and right lower quadrants under direct vision an d right lateral port for an assist, which is also an AirSeal 8. Once the camera was attached targeted, then the arms 2 and 4 were used to bring in fenestrated bipolar and scissors. Once the ti ps were advanced under direct vision, the arms were checked and ports were bur ped, lysed in order to the console. After evaluation under anesthesia, her POP-Q is as dictated above. So she definitely needed some form of suspension at the apex to prevent apical defect, which could make her prolaps e onset significantly earlier, so decided to perform uterosacral suspension colpopexy and probably a culdoplasty while doing this procedure. After visualizing the entire pelvic cavity from the pelvic brim to the ureteric tunnel, the ureters were traced and there was no distortion. There was no evidence of endometriosis. The procedure was sta rted. Windows were made by dissecting the risa toneum at the level of the bladder and bladder flap connecting this and the anterior pe ritoneum to the level of the round ligaments on both sides. Then, mitzi ing a window in the mesosalpinx for me to be able to take the tubes down on both sides, finding the ureters and making a peritoneal incision in the posterior wall. Onc e this was done, the vessel sealer was used through arm 4 to take down the t ubes, the round ligament, uteroovarian ligaments and anterior broad ligame nt opened up, the posterior broad ligament opened up all the way to the uter osacral ligaments. Then, the broad ligament was taken down to skeletonize the vessels. Once they were both visualized, the bladder was dissected inferiorly . A significant amount of dissection at least 2 cm on the anterior vaginal wall was performed to visualize the cup. Then, the vessels were taken down with the help of bipolar on both PATIENT NAME: BRITTANY MARTIN 763 sides and the vessel sealer. Then, cardinal liga ments, uterosacral ligaments were taken down with the help of the bipolar, mo nopolar scissors to perform a circumferential colpotomy and the specimen was p ulled out through the vagina. Ovaries were well vasculariz ed; however, they appeared to be more pendulous and given prior history of the ovarian cyst, did not want a higher incidence of ovarian torsion for this patient. Theref ore, plan to perform an ovariopexy was . 3-0 Monocryl was taken and a feifbx-ds-bbvni suture placed from the base of the ovary on the lateral aspect to the base of the r ound ligament in a qrkdug-ge-iddwx fashion and tied without tension on both sides with good hemostasis. Closure of the vaginal cuff was performed with 2 angle 0 Vicryl sutures and then a 2-0 V-Loc in a continuous running fash ion in two layers from one side to the other and back to the other side. After thorough irrigation, suction was p erformed, the ureters were identified, uterosacral ligaments were identified as well. T hen, 0 PDS suture was taken from the left uterosacral ligament from lateral to medial, making sure the ureter was visualized and was not kinked. Then, the posterior vaginal wall, rectovaginal septum and cul-de-sac were oblitera joe bringing the suture placed through the other uterosacral fro m medial to lateral and exiting making sure that the ureter was not kinked. Once all th is was done, the entire uterosacral ligament complex was tethered to the posterior aspect of the vaginal apex and this also held deemed to be benef icial for someone who has a predominant posterior wall defect. Once these were tied, there was no evidence of a ny mechanical, electrical or thermal injury to the ureter s. Thorough irrigation and suction was performed in the pelvic cavity ensuring hemostasis and vascul ar supply to the organs. All the trocars were removed from the robot. The robot was undocked and moved to the side. I came back to the console and prepped and myself. After thorough irrigation, suction was performed again. Trocars were removed under direct vision. The fascia was desufflated . Fascia was closed with the help of 0 Vicryl sutures, tied to each other at the level of the fascia. The skin incision was closed with 3-0 Monocryl and 4-0 Monocryl and closed with the help of Dermabond. The vaginal occluder and t he Castorena was removed. Then, cystoscopy was performed with 30-degree lens and no rmal saline. There was excellent urine stream from both ureteric orifices. There is no evidence of any trauma to the bladder. Bladder was drained. The patient was re covered from anesthesia and taken to the PACU in stable condition. Instrumen t, needle and sponge counts were correct. EBL was minimal. She has 1-week [facility] appointment made, and her was debriefed about her findings. Dictated By: Elizabeth Mark MD Date Dictated: 10/13/2022 16:57:35 Date Transcribed: 10/14/2022 02:35:21 SUSAN/LEORA/DONNA PATIENT NAME: BRITTANY MARTIN 763 Receipt ID: [id number] Authenticated by Elizabeth Mark MD On 10/20 04:51:37 PM at 0451 PATIENT NAME: BRITTANY MARTIN 763 2022-10-06 12:28:00-00:00 [facility] ([facility]) Brief Op Note REPORT#:[id number] REPORT STATUS: Signed DATE:10/06/22 TIME:1228 PATIENT: BRITTANY MARTIN UNIT #: [id number] ROOM/BED: : 83 AGE: 37 SEX: F ATTEND: Sa heather Mark MD ADM AUTHOR: Elizabeth Mark MD * ALL edits or amendments must be made on the [employer]/computer document * Op/Inv Proc Note - Brief Pre-procedure diagnosis: Menorrhagia (AUB-O/A) Post-procedure diagnosis: same as pre procedure dx, same and stage 1 uterovaginal prolapse, rectocele Procedures performed: RTLH, BS, USLS colpopexy, cysto, bilateral ovari opexy Primary Surgeon: jessica Surveillance Technician(s): Tavo Avelar Anesthesia: general anesthesia Findings: mild bladder scar, -2/-2/-2/5/thin/8/-1/0/-3, po steriro enterocele, USLS doneovaries appeared pendulous, pt w/ h/ o rt ovarian cystrectomy 2013, prevent torsion with bilateral ovariopexy, cysto patent ureters. Complications: none Estimated blood loss in ml's: none Specimens removed/altered: uterus tubes Drain(s): None Fluids: 1500 Urine output: 150 Approach: laparoscopic, robotic Wound class: clean-contaminated Disposition: plan to D/C home Counts: Sponge count: correct Instrument count: correct Needle count: correct Electronically Signed by Elizabeth Mark MD o n 10/06/22 at 1601 RPT #: [id number] END OF REPORT 2022-10-04 09:56:00-00:00 [id number] [facility] [id number] [place] [address] PATIENT NAME: BRITTANY MARTIN ADMIT DATE: ACCOUNT NO: [id number] ROOM NO: AGE: 37 REPORT TYPE: eELECTROCARDIOGRAM SEX: F ADMITTING PHYSICIAN: ATTENDING PHYSICIAN: Elizabeth Mark MD Order: [id number] Test Reason : PRE OP Test Date/Time Stamp: MonOct 04 2022 09:56:22 Blood Pressure : / mmHG Vent. Rate : 062 BPM Atrial Rate : 062 BPM P-R Int : 134 ms QRS Dur : 096 ms QT Int : 396 ms P-R-T Axes : 062 080 061 degree s QTc Int : 401 ms Normal sinus rhythm Normal ECG No previous ECGs available Confirmed by Aby Norwood ([id number]) on 2 5:40:55 AM Referred By: Elizabeth Mark Confirmed by:Aby Norwood Electronically Signed by Aby Norwood MD o n 10/06/22 at 0540 PATIENT NAME: BRITTANY MARTIN [id number]
[2023-07-16 23:09] LABS: Specific Gravity 1.009 (1.005-1.030); Urine Bacteria <20 /HPF (<20); Urine Bilirubin NEGATIVE (Negative); Urine Blood 3+ (Negative); Urine Clarity Turbid (Clear); Urine Color Light-Yellow (Yellow); Urine Glucose NEGATIVE (Negative); Urine Mucus Slight /HPF (None Seen); Urine Protein 1+ (Negative); Urine RBC >50 /HPF (None Seen); Urine Urobilinogen Normal (Normal)
[2023-07-16] MEDS ORDERED: IBUPROFEN 400 MG TAB ONE (23:18)
[2023-07-16] MEDS ORDERED: PHENAZOPYRIDINE 100MG TAB PO ONE (23:18)
--- NOTE | 2023-07-16 23:55 | ER ---
Nurse's Notes [facility] Name: Mainor Vila Age: 38 yrs Sex: Female : 1985 Arrival Date: 07/16/2023 Time: 21:50 Bed Treatment Private MD: Gerard Hamilton H Diagnosis: UTI/ Urinary tract infection, site not specified Presentation: 07/16 22:24 Chief complaint: Patient states: Pain with urination, bladder spasms, and bilateral kb3 flank pain since 1500 today. Coronavirus screen: Vaccine status: Patient reports receiving the 2nd dose of the covid vaccine. Client denies travel out of the [place] in the last 14 days. Ebola Screen: Patient negative for fever greater than or equal to 101.5 degrees Fahrenheit, and additional compatible Ebola Virus Disease symptoms Patient denies exposure to infectious person. Patient denies travel to an Ebola-affected area in the 21 days before illness onset. Initial Sepsis Screen: Does the patient meet any 2 criteria? No. Patient's initial sepsis screen is negative. Does the patient have a suspected source of infection? No. Patient's initial sepsis screen is negative. Risk Assessment: Do you want to hurt yourself or someone else? Patient reports no desire to harm self or others. Onset of symptoms was July 16, 2023 at 15:00. 22:24 Method Of Arrival: Ambulatory kb3 22:24 Acuity: IVAN 3 kb3 Triage Assessment: 22:25 General: Appears in no apparent distress. uncomfortable, Behavior is calm, cooperative. kb3 Pain: Complains of pain in left low back and right low back Pain does not radiate. Pain currently is 6 out of 10 on a pain scale. Quality of pain is described as burning, crampy, sharp, Pain began 1 day ago. : Reports burning with urination, cramping, pain urgency, urinary frequency. 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 - Social history:: Smoking status: Patient reports the use of cigarette tobacco products, smokes one pack cigarettes per day. Screenin/18 00:18 [facility] ED Fall Risk Assessment (Adult) History of falling in the last 3 months, pf1 including since admission No falls in past 3 months (0 pts) Confusion or Disorientation No (0 pts) Intoxicated or Sedated No (0 pts) Impaired Gait No (0 pts) Mobility Assist Device Used No (0 pt) Altered Elimination No (0 pt) Score/Fall Risk Level 0 - 2 = Low Risk Oriented to surroundings, Maintained a safe environment, Educated pt \\T\\ family on fall prevention, incl call for assistance when getting out of bed, Assessed \\T\\ reinforced patient's understanding of fall precautions, Provided non-skid footwear, Hourly rounding (assess needs \\T\\ fall precautionary measures) done, Used ambulatory aids as needed (educated on \\T\\ assisted with), Used gait belt as appropriate. Abuse screen: Denies threats or abuse. Nutritional screening: No deficits noted. Tuberculosis screening: No symptoms or risk factors identified. Assessment: 07/16 23:40 General: see triage assessment. pf1 Vital Signs: 22:24 BP 123 / 81; Pulse 81; Resp 20; Temp 98.9; Pulse Ox 100% ; Weight 92.99 kg; Height 5 kb3 ft. 4 in. ; Pain 6/10; 22:24 Body Mass Index 35.19 (92.99 kg, 162.56 cm) kb3 22:24 Pain Scale: Adult kb3 ED Course: 21:54 Patient arrived in ED. es 21:55 Gerard Hamilton MD is Private Physician. es 21:59 Clay Velazquez PA is PHCP. cp 21:59 Montana Marcos MD is Attending Physician. cp 22:25 Triage completed. kb3 22:25 Arm band placed on right wrist. Patient placed in an exam room, on a stretcher. kb3 22:25 Patient has correct armband on for positive identification. pf1 22:37 Urinalysis W/Microscopic Sent. kb3 07/17 00:18 No provider procedures requiring assistance completed. pf1 00:18 Patient did not have IV access during this emergency room visit. pf1 00:19 Provided Education on: prescription education. pf1 Administered Medications: 07/16 23:11 Drug: Phenazopyridine PO 200 mg Route: PO; kb3 07/17 00:00 Follow up: Response: No adverse reaction; Marked relief of symptoms pf1 07/16 23:11 Not Given (Patient Refused; "stomach issues"): Ibuprofen PO 800 mg PO once kb3 07/17 00:08 Drug: Rocephin (cefTRIAXone) IM 1 grams Route: IM; Site: left gluteus; 00:17 Follow up: Response: No adverse reaction pf1 Medication: 00:18 VIS not applicable for this client. pf1 Outcome: 07/16 23:55 Discharge ordered by . jean paul 07/17 00:17 Discharged to home ambulatory. pf1 Condition: stable Discharge instructions given to patient, Instructed on discharge instructions, follow up and referral plans. Demonstrated understanding of instructions, follow-up care, medications, Prescriptions given X 4. 00:20 Patient left the ED. pf1 Signatures: Janel Menon Corey, PA PA cp Garcia, Cindy, RN RN Sugey Polk RN RN kb3 Betzaida Salazar RN RN pf1
--- NOTE | 2023-07-16 23:55 | EDPHYS ---
Physician Documentation [facility] Name: Mainor Vila Age: 38 yrs Sex: Female : 1985 Arrival Date: 07/16/2023 Time: 21:50 Bed Treatment Private MD: Gerard Hamilton H ED Physician Montana Marcos HPI: 07/16 22:45 This 38 yrs old Female presents to ER via Ambulatory with complaints of Pain With cp Urination, Pain in kidney area. 22:45 The patient presents with urinary symptoms, dysuria. cp 22:45 Associated signs and symptoms: Pertinent positives: dysuria, mid back pain, Pertinent cp negatives: constipation, diarrhea, fever, vomiting. Severity of symptoms: in the emergency department the symptoms are unchanged, despite home interventions. The patient's method of control includes hysterectomy. 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 - Social history:: Smoking status: Patient reports the use of cigarette tobacco products, smokes one pack cigarettes per day. ROS: 22:50 Constitutional: Negative for body aches, chills, fever, poor PO intake. cp 22:50 Eyes: Negative for injury, pain, redness, and discharge. cp 22:50 Cardiovascular: Negative for chest pain, palpitations. 22:50 Respiratory: Negative for cough, shortness of breath, wheezing. 22:50 Abdomen/GI: Positive for abdominal pain, nausea, of the suprapubic area, Negative for vomiting, diarrhea, constipation. 22:50 Back: Positive for pain at rest, pain with movement, of the mid back area. 22:50 : Positive for burning with urination. 22:50 Neuro: Negative for dizziness, headache, weakness. 22:50 All other systems are negative. Exam: 22:55 Constitutional: The patient appears in no acute distress, alert, awake, non-toxic, well cp developed, well nourished. 22:55 Head/Face: Normocephalic, atraumatic. cp 22:55 Eyes: Periorbital structures: appear normal, Conjunctiva: normal, no exudate, no injection, Sclera: no appreciated abnormality, Lids and lashes: appear normal, bilaterally. 22:55 ENT: External ear(s): are unremarkable, Nose: is normal, Mouth: Lips: moist, Oral mucosa: pink and intact, moist, Posterior pharynx: is normal, airway is patent, no erythema, no exudate. 22:55 Chest/axilla: Inspection: normal. 22:55 Cardiovascular: Rate: normal, Rhythm: regular. 22:55 Respiratory: the patient does not display signs of respiratory distress, Respirations: normal, no use of accessory muscles, no retractions, labored breathing, is not present, Breath sounds: are clear throughout, no decreased breath sounds, no stridor, no wheezing. 22:55 Abdomen/GI: Inspection: abdomen appears normal, Bowel sounds: active, all quadrants, Palpation: soft, in all quadrants, mild abdominal tenderness, in the suprapubic area. 22:55 Back: pain, that is mild, of the mid back area, ROM is normal, Straight leg raises: of both lower extremities does not illicit pain. 22:55 Neuro: Gait: is steady, at a normal pace, without difficulty. Vital Signs: 22:24 BP 123 / 81; Pulse 81; Resp 20; Temp 98.9; Pulse Ox 100% ; Weight 92.99 kg; Height 5 kb3 ft. 4 in. ; Pain 6/10; 22:24 Body Mass Index 35.19 (92.99 kg, 162.56 cm) kb3 22:24 Pain Scale: Adult kb3 MDM: 22:28 Patient medically screened. cp 23:00 Differential diagnosis: kidney stone, ovarian cyst, pelvic inflammatory disease, cp urinary tract infection. 23:55 Data reviewed: vital signs, nurses notes, lab test result(s). cp 23:55 I considered the following discharge prescriptions or medication management in the emergency department Medications were administered in the Emergency Department. See MAR. Counseling: I had a detailed discussion with the patient and/or guardian regarding the historical points, exam findings, and any diagnostic results supporting the discharge/admit diagnosis, lab results, to return to the emergency department if symptoms worsen or persist or if there are any questions or concerns that arise at home. Response to treatment: the patient's symptoms have markedly improved after treatment, and as a result, I will discharge patient. 07/16 22:29 Order name: Urinalysis W/Microscopic; Complete Time: 23:54 cp 07/16 23:54 Interpretation: Normal except: [facility] Turbid; UBLD 3+; UPROT 1+; UESTR 500; UWBC 20-50; cp URBC >50. 07/16 23:32 Order name: Urine Culture EDMS Administered Medications: 23:11 Drug: Phenazopyridine PO 200 mg Route: PO; kb3 07/17 00:00 Follow up: Response: No adverse reaction; Marked relief of symptoms pf1 07/16 23:11 Not Given (Patient Refused; "stomach issues"): Ibuprofen PO 800 mg PO once kb3 07/17 00:08 Drug: Rocephin (cefTRIAXone) IM 1 grams Route: IM; Site: left gluteus; cg 00:17 Follow up: Response: No adverse reaction pf1 Disposition: 03:12 Co-signature as Attending Physician, [place] Marcos MD I agree with the assessment sp4 and plan of care. I reviewed the patient's care provided by the Advanced Practice Provider and agree with the diagnosis and treatment plan. Disposition Summary: 07/16/23 23:55 Discharge Ordered Location: Home cp Problem: new cp Symptoms: have improved cp Condition: Stable cp Diagnosis - UTI/ Urinary tract infection, site not specified cp Followup: cp - With: Private Physician - When: 2 - 3 days - Reason: Worsening of condition Discharge Instructions: - Discharge Summary Sheet cp - Urinary Tract Infection, Adult cp Forms: - Medication Reconciliation Form cp - Thank You Letter cp - Antibiotic Education cp - Prescription Opioid Use cp - Patient Portal Instructions cp - Leadership Thank You Letter cp Prescriptions: - Diflucan 150 mg Oral Tablet - take 1 tablet by ORAL route one time for 1 day; 1 tablet; Refills: 0, Product cp Selection Permitted - Ibuprofen 800 mg Oral Tablet - take 1 tablet by ORAL route every 8 hours As needed take with food; 30 tablet; cp Refills: 0, Product Selection Permitted - Pyridium 200 mg Oral Tablet - take 1 tablet by ORAL route every 8 hours for 3 days; 6 tablet; Refills: 0, cp Product Selection Permitted - cefpodoxime 200 mg Oral Tablet - take 1 tablet by ORAL route every 12 hours for 7 days with food; 14 tablet; cp Refills: 0, Product Selection Permitted Signatures: Dispatcher [employer] EDClay Weston PA PA cp Garcia, Cindy, RN RN cg Sugey Polk RN RN kb3 Montana Marcos MD MD sp4 Betzaida Salazar RN pf1
[2023-07-17] MEDS ORDERED: LIDOCAINE 1% MPF 2 ML AMPULE ONE (00:11)
[2023-07-17] MEDS ORDERED: CEFTRIAXONE 1000 MG/VIAL ONE (00:11)
[2023-07-17 01:09] VITALS: BP 123/81; TEMP 98.9; O2SAT 100
== END 2023-07-17 00:20 | disposition home or self-care (01) ==
LOC: ER 21:50
DX: N39.0 Urinary tract infection, site not specified (principal); Z88.2 Allergy status to sulfonamides
CPT/HCPCS: 87088; 81001; 87086; 96372; 99284; J0696